=== PATIENT | male | born 1965 | race Native Hawaiian/Other Pacific Islander ===

== ENCOUNTER 2021-02-02 12:02 | Emergency (ER) | payer OTHER ==
[~2021-02-02] VITALS: Ht 180.3 cm; Wt 77.1 kg
[2021-02-02 13:10] VITALS: BP 159/74; TEMP 98.4
== END 2021-02-02 13:10 | disposition home or self-care (01) ==
LOC: ED 12:02
PROC: 3E1B78Z Irrigation of Ear using Irrigating Substance, Via Natural or Artificial Opening (ICD-10-PCS; principal; 2021-02-02)
DX: H65.191 Other acute nonsuppurative otitis media, right ear (principal); H60.8X1 Other otitis externa, right ear; J32.8 Other chronic sinusitis; H92.01 Otalgia, right ear; F17.290 Nicotine dependence, other tobacco product, uncomplicated
CPT/HCPCS: 99283; J7040

== ENCOUNTER 2021-08-21 08:56 | Outpatient (CLI) | payer OTHER | END 2021-08-21 21:33 | disposition home or self-care (01) | LOC: RAD 08:56 | PROVIDERS: ATTEND Internal Medicine | DX: Z01.818 Encounter for other preprocedural examination (principal); K42.9 Umbilical hernia without obstruction or gangrene ==

== ENCOUNTER 2021-11-15 18:38 | Inpatient (IN) | payer OTHER ==
[~2021-11-15] VITALS: Ht 180.3 cm; Wt 75.9 kg
[2021-11-15] VITALS (18 sets, daily range): BP systolic 177–231; BP diastolic 68–176; TEMP 98.3
[2021-11-15 19:42] LABS: PLATELET COUNT 203 K/uL (142-355)
[2021-11-15 19:50] LABS: POTASSIUM 3.8 mmol/L (3.6-5.2)
[2021-11-15 20:00] LABS: PARTIAL THROMBOPLASTIN TIME 28.1 SECONDS (24.5-33.6)
[2021-11-16 00:05] VITALS: BP 187/82; TEMP 98.3; Ht 180.3 cm; Wt 75.9 kg
[2021-11-16 04:00] VITALS: BP 195/90; TEMP 98.54
[2021-11-16 05:16] LABS: PLATELET COUNT 184 K/uL (142-355)
[2021-11-16 05:19] LABS: POTASSIUM 3.6 mmol/L (3.6-5.2)
== END 2021-11-16 10:08 | disposition left against medical advice (07) | DRG 440 ==
LOC: ED 18:38 → MED/SURG 23:05
PROVIDERS: ADMIT Emergency Medicine; ATTEND Internal Medicine
DX: K85.20 Alcohol induced acute pancreatitis without necrosis or infection (principal); F10.20 Alcohol dependence, uncomplicated; G89.4 Chronic pain syndrome; E11.65 Type 2 diabetes mellitus with hyperglycemia
CPT/HCPCS: 36415; 80053; 81002; 83690; 84484; 85027; 85610; 85730; 87635; 93005; 96374; 96375; 96376; 99284; J1650; J2270; J2405; J3490; U0003

== ENCOUNTER 2022-11-12 01:28 | Emergency (ER) | payer OTHER ==
[~2022-11-12] VITALS: Ht 185.4 cm; Wt 77.1 kg
[2022-11-12 01:45] VITALS: BP 147/81; TEMP 98.1
[2022-11-12 02:26] LABS: PLATELET COUNT 254 K/uL (142-355)
[2022-11-12 02:31] LABS: POTASSIUM 3.6 mmol/L (3.6-5.2)
== END 2022-11-12 08:17 | disposition home or self-care (01) ==
LOC: ED 01:28
PROVIDERS: Family Medicine
DX: C25.2 Malignant neoplasm of tail of pancreas (principal); R10.9 Unspecified abdominal pain
CPT/HCPCS: 36415; 80053; 80320; 81002; 82150; 83690; 85027; 96365; 99284; J3411; J3475; J3490; Q9963

== ENCOUNTER 2022-12-10 08:37 | Emergency (ER) | payer OTHER ==
[~2022-12-10] VITALS: Ht 180.3 cm; Wt 79.8 kg
[2022-12-10 08:41] VITALS: TEMP 97.9
[2022-12-10 09:11] LABS: PLATELET COUNT 242 K/uL (142-355); POTASSIUM 3.9 mmol/L (3.6-5.2); SODIUM 136 mmol/L (136-145)
[2022-12-10 12:50] VITALS: BP 177/88
== END 2022-12-10 13:00 | disposition short-term general hospital (02) ==
LOC: ED 08:37
PROVIDERS: Family Medicine
DX: K85.90 Acute pancreatitis without necrosis or infection, unspecified (principal); R10.9 Unspecified abdominal pain; F17.210 Nicotine dependence, cigarettes, uncomplicated
CPT/HCPCS: 80053; 81002; 83690; 84484; 85027; 93005; 96374; 96375; 99284; J2270; J2405; Q9963